=== PATIENT | female | born 1995 | race Caucasian/White ===

== ENCOUNTER 2018-05-24 15:03 | Emergency (ER) | payer OTHER ==
--- NOTE | 2018-05-24 15:10 | ER Report ---
History and Physical Time Seen By MD: 15:09 HPI/ROS CHIEF COMPLAINT: Nausea, abdominal pain and diarrhea HISTORY OF PRESENT ILLNESS: This is a 22-year-old female who presents to the emergency department for nausea, abdominal pain and diarrhea. Patient states that in January 2018 she began to have some regular episodes of diarrhea, multiple he did talk to her parents, thought to have gastroenteritis, ultimately had a colonoscopy and was diagnosed with ulcerative colitis, negative for Crohn's disease. She was started on Flagyl, prednisone and mesalamine, she states that however over the last 1-2 weeks the diarrhea, nausea, aches and chills have increased in intensity. Also has bilateral low back pain. The abdominal pain seems to have increased in intensity as well. No documented fevers at home, denies sore throat, no chest pain or shortness of breath. No rashes. No headaches or meningismus. Patient states she has had an unintentional weight loss, unsure how much. REVIEW OF SYSTEMS: Constitutional: As above. Eyes: No discharge. ENT: No sore throat. Cardiovascular: No chest pain, no palpitations. Respiratory: No cough, no shortness of breath. Gastrointestinal: As above. Genitourinary: No hematuria. Musculoskeletal: As above. Skin: No rashes. Neurological: No headache. Allergies: Coded Allergies: No Known Drug Allergies (Unverified , 05/24/18) Home Meds Active Scripts Ondansetron Hcl (ZOFRAN) 4 Mg Tablet, 4 MG PO Q4-6H PRN for prn, #20 TAB Prov:ABDIAS OLIVIAP-BC 05/24/18 Hydrocodone Bit/Acetaminophen (HYDROCODON-ACETAMINOPHEN 5-325) 1 Each Tablet, 1 EACH PO Q4-6H PRN for PAIN, #10 TAB Prov:ABDIAS OLIVIA JOCKEY AGENT-BC 05/24/18 Reported Medications Calcium Carbonate (CALCIUM) 500 Mg Tablet, 500 MG PO DAILY 05/24/18 Multivitamin With Minerals (MULTIPLE VITAMIN) 1 Each Tablet, 1 EACH PO DAILY, TAB 05/24/18 Bifidobacterium Infantis (ALIGN) 4 Mg Capsule, 4 MG PO QDAY, CAPSULE 05/24/18 Mesalamine (Mesalamine) 1.2 Gram Tablet.dr 05/24/18 Diphenoxylate Hcl/Atropine (DIPHENOXYLATE-ATROPINE TABLET) 1 Each Tablet 05/24/18 Metronidazole (METRONIDAZOLE) 500 Mg Tablet 05/24/18 Ferrous Sulfate (FERROUS SULFATE) 325 Mg Tablet 05/24/18 Prednisone (PREDNISONE) 20 Mg Tablet 05/24/18 Past Medical/Surgical History The patient has a past medical and surgical history of history of colitis, appendectomy. Reviewed Nurses Notes: Yes Constitutional Vital Sign - Last 24 Hours 05/24/18 05/24/18 05/24/18 05/24/18 15:07 15:08 15:09 15:13 Temp 98.6 Pulse 85 94 88 Resp 16 B/P (MAP) 127/71 (89) 127/71 Pulse Ox 92 92 91 O2 Delivery Room Air 05/24/18 05/24/18 05/24/18 05/24/18 15:18 15:23 15:28 15:30 Pulse 96 93 82 B/P (MAP) 113/66 (82) Pulse Ox 91 91 91 05/24/18 05/24/18 05/24/18 05/24/18 15:33 15:38 15:43 15:48 Pulse 93 87 85 83 Pulse Ox 93 91 91 88 O2 Delivery Room Air 05/24/18 05/24/18 05/24/18 05/24/18 16:00 16:13 16:18 16:23 Pulse 68 75 74 B/P (MAP) 106/69 (81) Pulse Ox 100 100 100 O2 Delivery Nasal Cannula O2 Flow Rate 2 05/24/18 05/24/18 05/24/18 05/24/18 16:28 16:30 16:55 17:00 Pulse 70 86 66 B/P (MAP) 100/54 (69) 107/61 (76) Pulse Ox 100 88 100 O2 Delivery Room Air 05/24/18 17:05 Pulse 71 Pulse Ox 100 Physical Exam General Appearance: The patient is alert, has no immediate need for airway protection and no signs of toxicity. Eyes: Pupils equal and round no pallor or injection. ENT, Mouth: Mucous membranes are moist. Respiratory: There are no retractions, lungs are clear to auscultation. Cardiovascular: Regular rate and rhythm, no murmurs, clicks or rubs. Gastrointestinal: Abdomen is soft, generalized abdominal tenderness with palpation, no masses, hyperactive bowel sounds to the right and left upper quadrants. No abdominal bruits. No masses. Neurological: Alert and oriented 4. Moving all extremities. Following all commands. No focal neuro deficits. Skin: Warm and dry, no rashes. Musculoskeletal: Neck is supple non tender. Extremities are nontender, nonswollen and have full range of motion. DIFFERENTIAL DIAGNOSIS: After history and physical exam differential diagnosis was considered for abdominal pain in a female including but not limited to ovarian cyst, pelvic inflammatory disease, ulcerative colitis, bowel obstruct ion, ovarian torsion, urinary tract infection, and appendicitis. Medical Decision Making Data Points Result Diagram: 05/24/18 1530 05/24/18 1530 Laboratory Hematology Test 05/24/18 15:30 05/24/18 15:50 05/24/18 16:09 05/24/18 16:57 Red Blood Count 4.19 M/uL (4.17-5.56) Mean Corpuscular Volume 79.3 fL (80.0-96.0) Mean Corpuscular Hemoglobin 24.6 pg (26.0-33.0) Mean Corpuscular Hemoglobin Concent 31.0 g/dL (32.0-36.0) Red Cell Distribution Width 25.6 % (11.5-14.5) Mean Platelet Volume 6.8 fL (7.2-11.1) Neutrophils (%) (Auto) 89.0 % (39.4-72.5) Lymphocytes (%) (Auto) 5.7 % (17.6-49.6) Monocytes (%) (Auto) 5.2 % (4.1-12.4) Eosinophils (%) (Auto) 0.0 % (0.4-6.7) Basophils (%) (Auto) 0.1 % (0.3-1.4) Nucleated RBC Relative Count (auto) 0.0 /100WBC Neutrophils # (Auto) 14.6 K/uL (2.0-7.4) Lymphocytes # (Auto) 0.9 K/uL (1.3-3.6) Monocytes # (Auto) 0.9 K/uL (0.3-1.0) Eosinophils # (Auto) 0.0 K/uL (0.0-0.5) Basophils # (Auto) 0.0 K/uL (0.0-0.1) Nucleated RBC Absolute Count (auto) 0.00 K/uL Peripheral Blood Smear Yes Y/N Stool Leukocytes, Qualitative Positive Sodium Level 134 mmol/L (137-145) Potassium Level 4.2 mmol/L (3.5-5.0) Chloride Level 99 mmol/L (98-107) Carbon Dioxide Level 28 mmol/L (22-31) Blood Urea Nitrogen 12 mg/dl (7-18) Creatinine 1.40 mg/dl (0.52-1.04) Glomerular Filtration Rate Calc 47.0 Random Glucose 128 mg/dl (75-110) Calcium Level 8.5 mg/dl (8.4-10.2) Total Bilirubin < 0.1 mg/dl (0.2-1.3) Aspartate Amino Transf (AST/SGOT) 12 U/L (0-35) Alanine Aminotransferase (ALT/SGPT) 22 U/L (0-56) Alkaline Phosphatase 69 U/L (0-126) Total Protein 6.4 g/dl (6.3-8.2) Albumin 3.4 g/dl (3.5-5.0) Lipase 31 U/L (23-300) Human Chorionic Gonadotropin, Qual Negative (NEGATIVE) Helicobacter pylori IgG Antibody Negative (NEGATIVE) Influenza Virus Type A (PCR) Negative (NEGATIVE) Influenza Virus Type B (PCR) Negative (NEGATIVE) Urine Color Yellow Urine Clarity Slightly-cloudy Urine pH 6.0 pH (4.8-9.5) Urine Specific [place] 1.023 Urine Protein Negative mg/dL (NEGATIVE) Urine Glucose (UA) Negative mg/dL (NEGATIVE) Urine Ketones Negative mg/dL (NEGATIVE) Urine Blood Negative (NEGATIVE) Urine Nitrite Negative (NEGATIVE) Urine Bilirubin Negative (NEGATIVE) Urine Urobilinogen Negative mg/dL (0.2-1.9) Urine Leukocyte Esterase Trace (NEGATIVE) Urine RBC <1 /HPF (0-2/HPF) Urine WBC 2 /HPF (0-5/HPF) Urine Squamous Epithelial Cells Many /LPF (</=FEW) Urine Bacteria Few /HPF (NONE-FEW) Urine Mucus None /HPF (NONE-FEW) Stool Occult Blood (IFOB) Positive (NEGATIVE) Chemistry Test 05/24/18 15:30 05/24/18 15:50 05/24/18 16:09 05/24/18 16:57 White Blood Count 16.4 k/uL (4.5-11.0) Red Blood Count 4.19 M/uL (4.17-5.56) Hemoglobin 10.3 g/dL (12.0-16.0) Hematocrit 33.3 % (34.0-47.0) Mean Corpuscular Volume 79.3 fL (80.0-96.0) Mean Corpuscular Hemoglobin 24.6 pg (26.0-33.0) Mean Corpuscular Hemoglobin Concent 31.0 g/dL (32.0-36.0) Red Cell Distribution Width 25.6 % (11.5-14.5) Platelet Count 460 K/uL (150-450) Mean Platelet Volume 6.8 fL (7.2-11.1) Neutrophils (%) (Auto) 89.0 % (39.4-72.5) Lymphocytes (%) (Auto) 5.7 % (17.6-49.6) Monocytes (%) (Auto) 5.2 % (4.1-12.4) Eosinophils (%) (Auto) 0.0 % (0.4-6.7) Basophils (%) (Auto) 0.1 % (0.3-1.4) Nucleated RBC Relative Count (auto) 0.0 /100WBC Neutrophils # (Auto) 14.6 K/uL (2.0-7.4) Lymphocytes # (Auto) 0.9 K/uL (1.3-3.6) Monocytes # (Auto) 0.9 K/uL (0.3-1.0) Eosinophils # (Auto) 0.0 K/uL (0.0-0.5) Basophils # (Auto) 0.0 K/uL (0.0-0.1) Nucleated RBC Absolute Count (auto) 0.00 K/uL Peripheral Blood Smear Yes Y/N Stool Leukocytes, Qualitative Positive Glomerular Filtration Rate Calc 47.0 Calcium Level 8.5 mg/dl (8.4-10.2) Total Bilirubin < 0.1 mg/dl (0.2-1.3) Aspartate Amino Transf (AST/SGOT) 12 U/L (0-35) Alanine Aminotransferase (ALT/SGPT) 22 U/L (0-56) Alkaline Phosphatase 69 U/L (0-126) Total Protein 6.4 g/dl (6.3-8.2) Albumin 3.4 g/dl (3.5-5.0) Lipase 31 U/L (23-300) Human Chorionic Gonadotropin, Qual Negative (NEGATIVE) Helicobacter pylori IgG Antibody Negative (NEGATIVE) Influenza Virus Type A (PCR) Negative (NEGATIVE) Influenza Virus Type B (PCR) Negative (NEGATIVE) Urine Color Yellow Urine Clarity Slightly-cloudy Urine pH 6.0 pH (4.8-9.5) Urine Specific [place] 1.023 Urine Protein Negative mg/dL (NEGATIVE) Urine Glucose (UA) Negative mg/dL (NEGATIVE) Urine Ketones Negative mg/dL (NEGATIVE) Urine Blood Negative (NEGATIVE) Urine Nitrite Negative (NEGATIVE) Urine Bilirubin Negative (NEGATIVE) Urine Urobilinogen Negative mg/dL (0.2-1.9) Urine Leukocyte Esterase Trace (NEGATIVE) Urine RBC <1 /HPF (0-2/HPF) Urine WBC 2 /HPF (0-5/HPF) Urine Squamous Epithelial Cells Many /LPF (</=FEW) Urine Bacteria Few /HPF (NONE-FEW) Urine Mucus None /HPF (NONE-FEW) Stool Occult Blood (IFOB) Positive (NEGATIVE) Urinalysis Test 05/24/18 16:09 Urine Color Yellow Urine Clarity Slightly-cloudy Urine pH 6.0 pH (4.8-9.5) Urine Specific [place] 1.023 Urine Protein Negative mg/dL (NEGATIVE) Urine Glucose (UA) Negative mg/dL (NEGATIVE) Urine Ketones Negative mg/dL (NEGATIVE) Urine Blood Negative (NEGATIVE) Urine Nitrite Negative (NEGATIVE) Urine Bilirubin Negative (NEGATIVE) Urine Urobilinogen Negative mg/dL (0.2-1.9) Urine Leukocyte Esterase Trace (NEGATIVE) Urine RBC <1 /HPF (0-2/HPF) Urine WBC 2 /HPF (0-5/HPF) Urine Squamous Epithelial Cells Many /LPF (</=FEW) Urine Bacteria Few /HPF (NONE-FEW) Urine Mucus None /HPF (NONE-FEW) EKG/Imaging Imaging ocation: [facility] Patient: Kaitlynn Fabian : 1995 Visit/Account:[id number] Date of Sevice: 05/24/2018 CT ABDOMEN PELVIS W/ CON HISTORY: abd pain, diarrhea, UC worse TECHNIQUE: Following administration of IV contrast contiguous axial images acquired through the abdomen/pelvis. Coronal and sagittal reformatting also performed.Dose Lowering Technique One of the following dose optimization techniques was utilized in the performance of this exam: Automated exposure control; adjustment of the mA and/or kV according to the patient's size; or use of an iterative reconstruction technique. Specific details can be referenced in the facility's radiology CT exam operational policy. CONTRAST: 75 mL Isovue-370 COMPARISON: None. FINDINGS: Visualized lung bases: Negative. Hepatobiliary: The gallbladder is contracted which may be related to a recent meal as the stomach is full particulate material Spleen: Accessory splenule Adrenals: Negative. Pancreas: Negative. Kidneys ureters or bladder: Negative. Genitalia: Negative. GI: There is thickening and enhancement of the wall of the sigmoid colon and rectum which may be related to patient's reported ulcerative colitis. There also appears to be mild thickening of the cecum. Also just above the cecum in the ascending colon there is a large filling defect measuring 6.4 x 5.9 x 5.4 cm this may represent a conglomerate of stool however possibility of a mass lesion is not ruled out. There are surgical clips adjacent to the cecum from a prior appendectomy. Vessels/spaces/nodes: There are numerous mesenteric lymph nodes in the right- sided the abdomen extending into the right lower quadrant. A sales representative raw fibers lymph node measures 1.3 x 0.9 cm. Small shotty retroperitoneal lymph nodes present . There is a trace amount of free pelvic fluid Bones/soft tissues: There is a small umbilical hernia containing fat Additional findings: None pertinent. IMPRESSION: There is thickening enhancement of the wall the sigmoid colon and rectum which may be related to the patient's reported ulcerative colitis. There also appears to be mild thickening of the cecum Just above the cecum in the ascending colon there is a large filling defect as described above which may represent a conglomerate of stool however the possibility of a mass lesion is not ruled out. Numerous mesenteric lymph nodes right-sided the abdomen extending into the right lower quadrant Trace amount of free pelvic fluid. Gallbladder appears contracted which may be related to a recent meal as the stomach is full of particulate material Results were called to ABDIAS OLIVIA at 05/24/2018 4:40 PM. Report Dictated By: Angi Echols MD at 05/24/2018 4:25 PM Report E-Signed By: Angi Echols MD at 05/24/2018 4:40 PM WSN:[email or web address] ED Course/Re-evaluation Clinical Indication for ER IV: Hydration, IV Access ED Course The patient was admitted to room. A history and physical obtained. Differential diagnoses were considered. An IV was tried. 1 L normal saline bolus was given. 4 mg IV Zofran, 50 mg IV fentanyl. Follow-up with 4 mg IV morphine. CBC, CMP were obtained. White count 16.4, H&H 10.3 and 33.3, platelets were 60. Creatinine 1.40.CT of the abdomen pelvis showing thickening of the sigmoid colon and rectum consistent with the patient's ulcerative colitis, with some increased thickening of the cecum, they did note that there was a filling defect in the ascending colon that could be a conglomerate of stool over the were concerned about a mass or lesion however the patient had a colonoscopy in April no mass lesion was noted. Numerous mesenteric lymph nodes, otherwise unremarkable. I did review the studies with the patient and her mother. I also reviewed the case with Dr. Frazier, he did not feel that admission would be warranted at this time as the patient is on maximum steroid therapy and treatment for ulcerative colitis. I did review this with the mother and the patient, they were agreeable, they also have a follow-up appointment with GI in [place] tomorrow I did recommend driving up tonight given the weather is scheduled to change. I suspect that the elevation in white count with the left shift is secondary to the acute ulcerati ve colitis as well as steroids. The patient's creatinine is 1.4, likely dehydration The patient did feel better after a liter fluid and pain medications. I did send the patient home with a prescription for hydrocodone as well as Zofran. They will keep your follow-up appointment tomorrow, return to [facility] ER for any other concerns. Decision to Disposition Date: May 24, 2018 Decision to Disposition Time: 17:22 Depart Departure Latest Vital Signs Vital Signs Date Time Temp Pulse Resp B/P (MAP) Pulse Ox O2 Delivery O2 Flow Rate FiO2 05/24/18 17:05 71 100 05/24/18 17:00 107/61 (76) 05/24/18 16:55 Room Air 05/24/18 16:13 2 05/24/18 15:09 98.6 16 Impression: Primary Impression: Ulcerative colitis Condition: Improved Disposition: HOME OR SELF-CARE New Scripts Ondansetron Hcl (ZOFRAN) 4 Mg Tablet 4 MG PO Q4-6H PRN for prn, #20 TAB Prov: ABDIAS OLIVIA [facility] 05/24/18 Hydrocodone Bit/Acetaminophen (HYDROCODON-ACETAMINOPHEN 5-325) 1 Each Tablet 1 EACH PO Q4-6H PRN for PAIN, #10 TAB Prov: ABDIAS OLIVIAPChristo 05/24/18 Patient Instructions: Ulcerative Colitis (ED) Additional Instructions: Please consider driving to [place] [employer] as the weather in this area changes so quickly, I would hate for you to miss your appointment with GI tomorrow. Try a bland or clear liquid diet. Use the Hydrocodone for severe pain. Use the Zofran for nausea or vomiting. Continue taking your current medications. Return to the ED for any other concerns or worsening symptoms. Problem Qualifiers Primary Impression: Ulcerative colitis Ulcerative colitis location: ulcerative pancolitis Digestive disease complication type: unspecified complication Qualified Codes: K51.019 - Ulcerative (chronic) pancolitis with unspecified complications ABDIAS OLIVIA [facility] May 24, 2018 15:09
[2018-05-24] MEDS ORDERED: NS(*) 0.9% 1000 ML BAG 1,000 ML IV ONE (15:26)
[2018-05-24] MEDS ORDERED: fentaNYL CITR 100 MCG/2 ML AMP IVP ONE (15:30)
[2018-05-24] MEDS ORDERED: ONDANSETRON 4 MG/2 ML VIAL IVP ONE (15:30)
[2018-05-24] MEDS ORDERED: PANTOPRAZOLE SOD 40 MG IV VIAL IVP ONE (15:30)
[2018-05-24] MEDS ORDERED: IOPAMIDOL 61% 75 ML INFUS BTL 75 ML ONE (15:41)
[2018-05-24 15:43] LABS: PLATELET COUNT, AUTOMATED 460 K/uL (150-450)
[2018-05-24] MEDS ORDERED: BIFI4CAP2 PO (16:09)
[2018-05-24] MEDS ORDERED: CALC500T6 PO (16:09)
[2018-05-24] MEDS ORDERED: PRED20TA6 (16:09)
[2018-05-24] MEDS ORDERED: FERR-53 (16:09)
[2018-05-24] MEDS ORDERED: MULT-1335 PO (16:09)
[2018-05-24] MEDS ORDERED: METR500T15 (16:09)
[2018-05-24] MEDS ORDERED: MESA1.2T3 (16:09)
[2018-05-24] MEDS ORDERED: DIPH-543 (16:09)
[2018-05-24] MEDS ORDERED: MORPHINE 4 MG/ML SDV IVP ONE (16:20)
--- NOTE | 2018-05-24 16:45 | RADIOLOGY IMAGING REPORT ---
FACILITY: [facility] - [place] PATIENT NAME: Kaitlynn Fabian : 1995 MR: [id number] V: [id number] EXAM DATE: ORDERING PHYSICIAN: ABDIAS OLIVIA TECHNOLOGIST: Location: [facility] - [place] Patient: Kaitlynn Fabian : 1995 Visit/Account:[id number] Date of Sevice: 05/24/2018 CT ABDOMEN PELVIS W/ CON HISTORY: abd pain, diarrhea, UC worse TECHNIQUE: Following administration of IV contrast contiguous axial images acquired through the abdom en/pelvis. Coronal and sagittal reformatting also performed.Dose Lowering Technique One of the following dose optimization techniques was utilized in the performance of this exam: Autom ated exposure control; adjustment of the mA and/or kV according to the patient's size; or use of an i terative reconstruction technique. Specific details can be referenced in the facility's radiology C T exam operational policy. CONTRAST: 75 mL Isovue-370 COMPARISON: None. FINDINGS: Visualized lung bases: Negative. Hepatobiliary: The gallbladder is contracted which may be related to a recent meal as the stomach is full particulate material Spleen: Accessory splenule Adrenals: Negative. Pancreas: Negative. Kidneys ureters or bladder: Negative. Genitalia: Negative. GI: There is thickening and enhancement of the wall of the sigmoid colon and rectum which may be rel ated to patient's reported ulcerative colitis. There also appears to be mild thickening of the cecum . Also just above the cecum in the ascending colon there is a large filling defect measuring 6.4 x 5 .9 x 5.4 cm this may represent a conglomerate of stool however possibility of a mass lesion is not ru led out. There are surgical clips adjacent to the cecum from a prior appendectomy. Vessels/spaces/nodes: There are numerous mesenteric lymph nodes in the right-sided the abdomen exten ding into the right lower quadrant. A computer help desk representative lymph node measures 1.3 x 0.9 cm. Small shotty retroperitoneal lymph nodes present . There is a trace amount of free pelvic fluid Bones/soft tissues: There is a small umbilical hernia containing fat Additional findings: None pertinent. IMPRESSION: There is thickening enhancement of the wall the sigmoid colon and rectum which may be related to the patient's reported ulcerative colitis. There also appears to be mild thickening of the cecum Just above the cecum in the ascending colon there is a large filling defect as described above which may represent a conglomerate of stool however the possibility of a mass lesion is not ruled out. Num erous mesenteric lymph nodes right-sided the abdomen extending into the right lower quadrant Trace amount of free pelvic fluid. Gallbladder appears contracted which may be related to a recent meal as the stomach is full of partic ulate material Results were called to ABDIAS OLIVIA at 05/24/2018 4:40 PM. Report Dictated By: Angi Echols MD at 05/24/2018 4:25 PM Report E-Signed By: Angi Echols MD at 05/24/2018 4:40 PM WSN:[email or web address]
[2018-05-24 17:00] VITALS: BP 107/61
[2018-05-24] MEDS ORDERED: HYDR-385 PO (17:18)
[2018-05-24] MEDS ORDERED: ONDA4TAB97 PO (17:18)
== END 2018-05-24 17:34 | disposition home or self-care (01) ==
LOC: ER 15:37
DX: K51.019 Ulcerative (chronic) pancolitis with unspecified complications (principal)
CPT/HCPCS: 74177; 81001; 82274; 83630; 83690; 84703; 85025; 86677; 87045; 87177; 87493; 87502; 96361; 96374; 96375; 99284; C9113; J2270; J2405; J3010; J7030; Q9967; 82040; 82247; 82310; 82374; 82435; 82565; 82947; 84075; 84132; 84155; 84295; 84450; 84460; 84520

== ENCOUNTER → 2018-06-27 | Outpatient (CLI) | payer OTHER ==
[~2018-06-27] MED LIST: BIFI4CAP2 PO; CALC500T6 PO; DIPH-543; FERR-53; HYDR-385 PO; MESA1.2T3; METR500T15; MULT-1335 PO; ONDA4TAB97 PO; PRED20TA6
--- NOTE | 2018-06-27 14:16 | RADIOLOGY IMAGING REPORT ---
[place] [facility] [place] NAME: Kaitlynn Fabian : 1995 MR: [id number] V: [id number] EXAM DATE: ORDERING PHYSICIAN: DEBBIE REYSE TECHNOLOGIST: [place] [facility] [place] Patient: Kaitlynn Fabian : 1995 Visit/Account:[id number] Date of Sevice: 06/27/2018 US VENOUS LOWER EXT RT HISTORY: Calf pain since Tuesday COMPARISON: None. FINDINGS: Duplex sonographic images of the segmental compressibility and evaluation of respiratory phasicity re veals no evidence of DVT. No mass or fluid collection. IMPRESSION: Unremarkable right lower extremity DVT ultrasound Report Dictated By: Beka Ramos MD at 06/27/2018 2:10 PM Report E-Signed By: Beka Ramos MD at 06/27/2018 2:11 PM WSN:[id number]
== END ==
LOC: CT 12:40
PROVIDERS: ATTEND Nurse Practitioner Family
DX: M79.604 Pain in right leg (principal)

== ENCOUNTER → 2018-06-27 | Outpatient (CLI) | payer OTHER ==
[~2018-06-27] MED LIST changes: +IOPAMIDOL 76% 150 ML INFUS BTL 150 ML ONE
--- NOTE | 2018-06-27 17:10 | RADIOLOGY IMAGING REPORT ---
FACILITY: PATIENT NAME: Kaitlynn Fabian : 1995 MR: [id number] V: [id number] EXAM DATE: ORDERING PHYSICIAN: DEBBIE REYES TECHNOLOGIST: Location: [facility] Patient: Kaitlynn Fabian : 1995 Visit/Account:[id number] Date of Sevice: 06/27/2018 CT abdomen and pelvis with and without contrast. Indication: Abdominal pain. History of ulcerative colitis. Comparison: May 24, 2018. Technique: Axial CT images were obtained through the abdomen and pelvis during injection of nonioni c iodinated intravenous contrast. Reformatted coronal and sagittal images were also obtained. Pre con trast images were also obtained. Contrast: 75 ml of Isovue-370 IV contrast. One of the following dose optimization techniques was utilized in the performance of this exam: Autom ated exposure control; adjustment of the mA and/or kV according to the patient's size; or use of an i terative reconstruction technique. Specific details can be referenced in the facility's radiology C T exam operational policy. Findings: Lower lung stoll: Limited views lower lung field are unremarkable. Liver: No focal parenchymal abnormality of the liver. Biliary: The gallbladder is contracted. No biliary dilatation. Pancreas: Normal appearance. Spleen: Normal appearance. Adrenal glands: Unremarkable. Kidneys / retroperitoneum: No evidence of nephrolithiasis or hydronephrosis Bowel / peritoneum / mesenteries: Since the previous exam, patient has developed wall and mucosal thi ckening involving the ascending colon, the transverse colon and the splenic flexure of the colon cons istent with an acute colitis. This would be consistent with a history of ulcerative colitis. There is a large colonic mass identified within the ascending colon. This causes focal luminal narrowing. The re is felt to be central necrosis identified within this mass. Since the prior exam, the central area of necrosis is much better defined. In 3 planes, this measures at least 6.0 x 4.5 x 7.2 cm in size. Given the history of ulcerative colitis, concern is for colonic malignancy and surgical consultation is necessary. There has been prior appendectomy. No evidence for colonic or small bowel obstruction. No free air. There is a small amount of free pelvic fluid within the dependent pelvis. Lymph node assessment: A few scattered nodes are seen within the right ileocolonic mesentery. Largest node on image 85 measures 7 mm in short axis and is not enlarged by criteria. Pelvic structures: Appear unremarkable. Vessels: No significant atherosclerotic calcifications seen throughout a nonaneurysmal abdominal aort a and branches. Musculoskeletal / Body wall: No acute or aggressive osseous abnormality. IMPRESSION: 1. CT findings consistent with recurrent colitis involving the ascending colon, transverse colon and the splenic flexure of the colon. No evidence of free air or abscess. 2. CT findings consistent with a large mass involving the ascending colon with central necrosis. See measurements above. A few scattered nodes are seen in the surrounding mesenteryy. 3. Small volume of free pelvic fluid. Results were discussed with DEBBIE REYES at 06/27/2018 5:06 PM. Report Dictated By: Miles Bravo at 06/27/2018 4:38 PM Report E-Signed By: Miles Bravo at 06/27/2018 5:06 PM WSN:[id number]
== END ==
LOC: CT 15:41
PROVIDERS: ATTEND Nurse Practitioner Family
DX: K52.89 Other specified noninfective gastroenteritis and colitis (principal); K63.89 Other specified diseases of intestine
CPT/HCPCS: 74178; Q9967

== ENCOUNTER → 2018-06-27 | Outpatient (REF) | payer OTHER ==
[~2018-06-27] MED LIST changes: -IOPAMIDOL 76% 150 ML INFUS BTL 150 ML ONE
[2018-06-27 13:00] LABS: PLATELET COUNT, AUTOMATED 369 K/uL (150-450)
== END ==
PROVIDERS: ATTEND Nurse Practitioner Family
DX: M79.609 Pain in unspecified limb (principal)
CPT/HCPCS: 36415; 82040; 82247; 82310; 82374; 82435; 82565; 82947; 84075; 84132; 84155; 84295; 84450; 84460; 84520; 85025; 85379

== ENCOUNTER 2018-06-28 03:08 | Emergency (ER) | payer OTHER ==
--- NOTE | 2018-06-28 03:14 | ER Report ---
History and Physical Time Seen By MD: 03:14 (EVELIO NOLASCO DO) HPI/ROS CHIEF COMPLAINT: Right lower leg pain HISTORY OF PRESENT ILLNESS: 23-year-old female with an extensive past medical history of ulcerative colitis. She is on Humira. She also is on numerous medications for maintenance of her ulcerative colitis. 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 She has plans for colonoscopy and biopsy. Patient's here visiting from [place]. She participate in a rodeo on Tuesday. She was thrown from her horse because she is feeling weak and off balance. She did not sustain any injury. She was able to get up and ambulate without pain or discomfort. She developed right leg pain. Several days later very mild at 1st in the right calf muscle progressively worse over the last 3 days to the point where she is unable to walk or ambulate. She was seen yesterday in urgent care and had an ultrasound of her right lower extremity performed which was negative for evidence of DVT. She's been taking her hydrocodone which is prescribed by her GI doctor with minimal relief. Tonight she has 10 out of 10 pain. She is unable to get comfortable. She is on prednisone 30 mg per day for control and maintenance of her ulcerative colitis. (EVELIO NOLASCO DO) Allergies: Coded Allergies: No Known Drug Allergies (Unverified , 05/24/18) Home Meds Active Scripts Ondansetron Hcl (ZOFRAN) 4 Mg Tablet, 4 MG PO Q4-6H PRN for prn, #20 TAB Prov:ABDIAS OLIVIAP-BC 05/24/18 Hydrocodone Bit/Acetaminophen (HYDROCODON-ACETAMINOPHEN 5-325) 1 Each Tablet, 1 EACH PO Q4-6H PRN for PAIN, #10 TAB Prov:ABDIAS OLIVIA BUSINESS OFFICE ASSISTANT-BC 05/24/18 Reported Medications Calcium Carbonate (CALCIUM) 500 Mg Tablet, 500 MG PO DAILY 05/24/18 Multivitamin With Minerals (MULTIPLE VITAMIN) 1 Each Tablet, 1 EACH PO DAILY, TAB 05/24/18 Bifidobacterium Infantis (ALIGN) 4 Mg Capsule, 4 MG PO QDAY, CAPSULE 05/24/18 Mesalamine (Mesalamine) 1.2 Gram Tablet. 05/24/18 Diphenoxylate Hcl/Atropine (DIPHENOXYLATE-ATROPINE TABLET) 1 Each Tablet 05/24/18 Metronidazole (METRONIDAZOLE) 500 Mg Tablet 05/24/18 Ferrous Sulfate (FERROUS SULFATE) 325 Mg Tablet 05/24/18 Prednisone (PREDNISONE) 20 Mg Tablet 05/24/18 Past Medical/Surgical History Ulcerative colitis, abdominal mass (EVELIO NOLASCO DO) Reviewed Nurses Notes: Yes Old Medical Records Reviewed: Yes (EVELIO NOLASCO DO) Constitutional Vital Sign - Last 24 Hours 06/28/18 06/28/18 06/28/18 06/28/18 03:13 03:14 03:30 03:38 Temp 98.8 Pulse 111 106 Resp 18 B/P (MAP) 144/81 (102) 144/81 130/78 (95) Pulse Ox 99 99 O2 Delivery Room Air 06/28/18 06/28/18 06/28/18 06/28/18 04:00 04:30 05:00 05:30 B/P (MAP) 126/74 (91) 115/66 (82) 123/63 (83) 117/72 (87) 06/28/18 06/28/18 06/28/18 06/28/18 06:00 06:30 06:35 06:55 Pulse 93 88 B/P (MAP) 127/71 (89) 138/71 (93) 06/28/18 06/28/18 06/28/18 06/28/18 07:15 07:35 07:55 08:15 Pulse 99 99 110 118 Pulse Ox 97 06/28/18 06/28/18 06/28/18 06/28/18 08:20 08:36 08:40 09:00 Pulse 136 119 106 Pulse Ox 95 97 100 O2 Flow Rate 2.0 06/28/18 09:20 Pulse 102 (MIKAYLA LEONARD MD) Physical Exam General appearance: Moderate distress, slightly pale appearing, vital signs stable, afebrile Respiratory: Chest is non tender, lungs are clear to auscultation. Cardiac: Regular rate and rhythm Extremities: Examination of the right lower extremity reveals a neurovascularly intact right foot. The foot is slightly cool appearing and cold to the touch, but there are intact pulses both dorsalis pedis and posterior tibial. Patient has significant pain on compression of the calf muscle, dorsiflexion, there is edema and fullness to the Achilles bursa area. DIFFERENTIAL DIAGNOSIS: After history and physical exam differential diagnosis was considered for leg pain, bursitis, Achilles tendinitis, muscle strain, hematoma, DVT, arthritis (EVELIO NOLASCO DO) Medical Decision Making Data Points Result Diagram: 06/28/18 0705 06/28/18 0705 Laboratory Hematology Test 06/28/18 07:05 06/28/18 08:07 06/28/18 08:16 Red Blood Count 3.45 M/uL (4.17-5.56) Mean Corpuscular Volume 82.7 fL (80.0-96.0) Mean Corpuscular Hemoglobin 25.9 pg (26.0-33.0) Mean Corpuscular Hemoglobin Concent 31.3 g/dL (32.0-36.0) Red Cell Distribution Width 20.6 % (11.5-14.5) Mean Platelet Volume 6.7 fL (7.2-11.1) Neutrophils (%) (Auto) 82.4 % (39.4-72.5) Lymphocytes (%) (Auto) 13.0 % (17.6-49.6) Monocytes (%) (Auto) 4.3 % (4.1-12.4) Eosinophils (%) (Auto) 0.0 % (0.4-6.7) Basophils (%) (Auto) 0.3 % (0.3-1.4) Nucleated RBC Relative Count (auto) 0.0 /100WBC Neutrophils # (Auto) 15.3 K/uL (2.0-7.4) Lymphocytes # (Auto) 2.4 K/uL (1.3-3.6) Monocytes # (Auto) 0.8 K/uL (0.3-1.0) Eosinophils # (Auto) 0.0 K/uL (0.0-0.5) Basophils # (Auto) 0.1 K/uL (0.0-0.1) Nucleated RBC Absolute Count (auto) 0.00 K/uL Peripheral Blood Smear Yes Y/N Prothrombin Time 13.7 seconds (12.0-14.4) Prothromb Time International Ratio 1.04 Activated Partial Thromboplast Time 30 seconds (23-35) Sodium Level 134 mmol/L (137-145) Potassium Level 3.4 mmol/L (3.5-5.0) Chloride Level 94 mmol/L (98-107) Carbon Dioxide Level 28 mmol/L (22-31) Blood Urea Nitrogen 15 mg/dl (7-18) Creatinine 0.80 mg/dl (0.52-1.04) Glomerular Filtration Rate Calc > 60.0 Random Glucose 112 mg/dl (75-110) Calcium Level 9.1 mg/dl (8.4-10.2) Total Bilirubin 0.4 mg/dl (0.2-1.3) Aspartate Amino Transf (AST/SGOT) 19 U/L (0-35) Alanine Aminotransferase (ALT/SGPT) 21 U/L (0-56) Alkaline Phosphatase 88 U/L (0-126) C-Reactive Protein 22.5 mg/dl (<1.0) Total Protein 7.4 g/dl (6.3-8.2) Albumin 4.2 g/dl (3.5-5.0) Urine Color Yellow Urine Clarity Slightly-cloudy Urine pH 6.0 pH (4.8-9.5) Urine Specific [place] 1.039 Urine Protein 30 mg/dL (NEGATIVE) Urine Glucose (UA) Negative mg/dL (NEGATIVE) Urine Ketones Negative mg/dL (NEGATIVE) Urine Blood Small (NEGATIVE) Urine Nitrite Negative (NEGATIVE) Urine Bilirubin Negative (NEGATIVE) Urine Urobilinogen Negative mg/dL (0.2-1.9) Urine Leukocyte Esterase Negative (NEGATIVE) Urine RBC 1 /HPF (0-2/HPF) Urine WBC 5 /HPF (0-5/HPF) Urine Squamous Epithelial Cells Many /LPF (</=FEW) Urine Transitional Epithelial Cells Few /LPF (NONE-FEW) Urine Bacteria Negative /HPF (NONE-FEW) Urine Mucus Few /HPF (NONE-FEW) Lactate 2.8 mmol/L (0.7-2.1) Chemistry Test 06/28/18 07:05 06/28/18 08:07 06/28/18 08:16 White Blood Count 18.6 k/uL (4.5-11.0) Red Blood Count 3.45 M/uL (4.17-5.56) Hemoglobin 8.9 g/dL (12.0-16.0) Hematocrit 28.5 % (34.0-47.0) Mean Corpuscular Volume 82.7 fL (80.0-96.0) Mean Corpuscular Hemoglobin 25.9 pg (26.0-33.0) Mean Corpuscular Hemoglobin Concent 31.3 g/dL (32.0-36.0) Red Cell Distribution Width 20.6 % (11.5-14.5) Platelet Count 385 K/uL (150-450) Mean Platelet Volume 6.7 fL (7.2-11.1) Neutrophils (%) (Auto) 82.4 % (39.4-72.5) Lymphocytes (%) (Auto) 13.0 % (17.6-49.6) Monocytes (%) (Auto) 4.3 % (4.1-12.4) Eosinophils (%) (Auto) 0.0 % (0.4-6.7) Basophils (%) (Auto) 0.3 % (0.3-1.4) Nucleated RBC Relative Count (auto) 0.0 /100WBC Neutrophils # (Auto) 15.3 K/uL (2.0-7.4) Lymphocytes # (Auto) 2.4 K/uL (1.3-3.6) Monocytes # (Auto) 0.8 K/uL (0.3-1.0) Eosinophils # (Auto) 0.0 K/uL (0.0-0.5) Basophils # (Auto) 0.1 K/uL (0.0-0.1) Nucleated RBC Absolute Count (auto) 0.00 K/uL Peripheral Blood Smear Yes Y/N Prothrombin Time 13.7 seconds (12.0-14.4) Prothromb Time International Ratio 1.04 Activated Partial Thromboplast Time 30 seconds (23-35) Glomerular Filtration Rate Calc > 60.0 Calcium Level 9.1 mg/dl (8.4-10.2) Total Bilirubin 0.4 mg/dl (0.2-1.3) Aspartate Amino Transf (AST/SGOT) 19 U/L (0-35) Alanine Aminotransferase (ALT/SGPT) 21 U/L (0-56) Alkaline Phosphatase 88 U/L (0-126) C-Reactive Protein 22.5 mg/dl (<1.0) Total Protein 7.4 g/dl (6.3-8.2) Albumin 4.2 g/dl (3.5-5.0) Urine Color Yellow Urine Clarity Slightly-cloudy Urine pH 6.0 pH (4.8-9.5) Urine Specific [place] 1.039 Urine Protein 30 mg/dL (NEGATIVE) Urine Glucose (UA) Negative mg/dL (NEGATIVE) Urine Ketones Negative mg/dL (NEGATIVE) Urine Blood Small (NEGATIVE) Urine Nitrite Negative (NEGATIVE) Urine Bilirubin Negative (NEGATIVE) Urine Urobilinogen Negative mg/dL (0.2-1.9) Urine Leukocyte Esterase Negative (NEGATIVE) Urine RBC 1 /HPF (0-2/HPF) Urine WBC 5 /HPF (0-5/HPF) Urine Squamous Epithelial Cells Many /LPF (</=FEW) Urine Transitional Epithelial Cells Few /LPF (NONE-FEW) Urine Bacteria Negative /HPF (NONE-FEW) Urine Mucus Few /HPF (NONE-FEW) Lactate 2.8 mmol/L (0.7-2.1) Coagulation Test 06/28/18 07:05 Prothrombin Time 13.7 seconds Prothromb Time International Ratio 1.04 Activated Partial Thromboplast Time 30 seconds Urinalysis Test 06/28/18 08:07 Urine Color Yellow Urine Clarity Slightly-cloudy Urine pH 6.0 pH (4.8-9.5) Urine Specific [place] 1.039 Urine Protein 30 mg/dL (NEGATIVE) Urine Glucose (UA) Negative mg/dL (NEGATIVE) Urine Ketones Negative mg/dL (NEGATIVE) Urine Blood Small (NEGATIVE) Urine Nitrite Negative (NEGATIVE) Urine Bilirubin Negative (NEGATIVE) Urine Urobilinogen Negative mg/dL (0.2-1.9) Urine Leukocyte Esterase Negative (NEGATIVE) Urine RBC 1 /HPF (0-2/HPF) Urine WBC 5 /HPF (0-5/HPF) Urine Squamous Epithelial Cells Many /LPF (</=FEW) Urine Transitional Epithelial Cells Few /LPF (NONE-FEW) Urine Bacteria Negative /HPF (NONE-FEW) Urine Mucus Few /HPF (NONE-FEW) (MIKAYLA LEONARD MD) Microbiology Microbiology Date/Time Source Procedure Growth Status 06/28/18 08:33 Blood Blood Culture - Preliminary NO GROWTH SO FAR, SET LATE. REINCUBATED Resulted 06/28/18 08:16 Blood Blood Culture - Preliminary NO GROWTH SO FAR, SET LATE. REINCUBATED Resulted (MIKAYLA LEONARD MD) EKG/Imaging Imaging Results: CT scan of the abdomen and pelvis with IV contrast was obtained. The results of the study are CT abdomen and pelvis with and without contrast. Indication: Abdominal pain. History of ulcerative colitis. Comparison: May 24, 2018. Technique: Axial CT images were obtained through the abdomen and pelvis during injection of nonionic iodinated intravenous contrast. Reformatted coronal and sagittal images were also obtained. Pre contrast images were also obtained. Contrast: 75 ml of Isovue-370 IV contrast. One of the following dose optimization techniques was utilized in the performance of this exam: Automated exposure control; adjustment of the mA and/or kV according to the patient's size; or use of an iterative reconstruction technique. Specific details can be referenced in the facility's radiology CT exam operational policy. Findings: Lower lung stoll: Limited views lower lung field are unremarkable. Liver: No focal parenchymal abnormality of the liver. Biliary: The gallbladder is contracted. No biliary dilatation. Pancreas: Normal appearance. Spleen: Normal appearance. Adrenal glands: Unremarkable. Kidneys / retroperitoneum: No evidence of nephrolithiasis or hydronephrosis Bowel / peritoneum / mesenteries: Since the previous exam, patient has developed wall and mucosal thickening involving the ascending colon, the transverse colon and the splenic flexure of the colon consistent with an acute colitis. This would be consistent with a history of ulcerative colitis. There is a large colonic mass identified within the ascending colon. This causes focal luminal narrowing. There is felt to be central necrosis identified within this mass. Since the prior exam, the central area of necrosis is much better defined. In 3 planes, this measures at least 6.0 x 4.5 x 7.2 cm in size. Given the history of ulcerative colitis, concern is for colonic malignancy and surgical consultation is necessary. There has been prior appendectomy. No evidence for colonic or small bowel obstruction. No free air. There is a small amount of free pelvic fluid within the dependent pelvis. Lymph node assessment: A few scattered nodes are seen within the right ileocolonic mesentery. Largest node on image 85 measures 7 mm in short axis and is not enlarged by criteria. Pelvic structures: Appear unremarkable. Vessels: No significant atherosclerotic calcifications seen throughout a non aneurysmal abdominal aorta and branches. Musculoskeletal / Body wall: No acute or aggressive osseous abnormality. IMPRESSION: 1. CT findings consistent with recurrent colitis involving the ascending colon, transverse colon and the splenic flexure of the colon. No evidence of free air or abscess. 2. CT findings consistent with a large mass involving the ascending colon with central necrosis. See measurements above. A few scattered nodes are seen in the surrounding mesenteryy. 3. Small volume of free pelvic fluid. The study was read by the radiologist. I viewed the images myself on the PACS system. Results: Ultrasound of the right lower extremity venogram was obtained. The results of the study are US VENOUS LOWER EXT RT HISTORY: Calf pain since Tuesday COMPARISON: None. FINDINGS: Duplex sonographic images of the segmental compressibility and evaluation of re spiratory phasicity reveals no evidence of DVT. No mass or fluid collection. IMPRESSION: Unremarkable right lower extremity DVT ultrasound The study was read by the radiologist. I viewed the images myself on the PACS system. Results: MRI of the right lower extremity was obtained. The results of the study are MRI right tibia and fibula INDICATION: Right lower leg pain. Recent fall off horse. COMPARISON: None available. TECHNIQUE: Sagittal STIR and proton density fat saturated, coronal STIR, axial T1-weighted, T2-weighted fat-saturated images were obtained through the right tibia and fibula. FINDINGS: The marrow pattern of the included portions of the tibia and fibula is normal. There is no evidence of fracture or stress reaction. No bone contusion. Multifocal muscle abnormalities involve the lower leg. Specifically, abnormal muscle edema involves the posterior compartment musculature. This is most severe involving the medial and the lateral soleal musculature. This is most pronounced along the myotendinous junctions both proximally and distally. Less pronounced involvement of the lateral gastrocnemius and the medial gastrocnemius musculature. No intramuscular hematoma or fluid collection is seen. Focal tearing is suggested of the lateral soleus myotendinous junction consistent with a grade 2 myotendinous strain. The medial soleus and the gastrocnemius strains are felt to be low-grade. The anterior compartment musculature is normal. There is muscle edema seen within the lateral compartment within the proximal aspect of the lower leg. This involves the peroneal musculature. IMPRESSION: 1. Multifocal muscle strains involving the right lower leg. In the posterior compartment musculature, there is a grade 2 lateral soleus myotendinous strain without hematoma or fluid collection. Low-grade myotendinous strains involve the medial soleus as well as the gastrocnemius musculature. 2. Low-grade myotendinous strains proximally involving the peroneal musculature within the upper portion of the lower leg. 3. No evidence of fracture or bone contusion of the tibia or fibula. The study was read by the radiologist. I viewed the images myself on the PACS system. (EVELIO NOLASCO DO) ED Course/Re-evaluation ED Course Patient was admitted to an examination room. H&P was done. The differential diagnosis was considered. On clinical examination. Patient complaining of severe left calf pain. She has pain with movement. She had an ultrasound and a CT scan of her abdomen and pelvis yesterday at urgent care. The CT scan shows a large necrotic mass in the colon worrisome for malignancy. Patient's ultrasound of her right lower extremity was unremarkable for DVT. Patient has her own hydrocodone take for pain which has not been controlling the pain. She was unable to sleep tonight and came in to the emergency department for further evaluation. She has intact neurovascular function in her right foot. There is some swelling in the Achilles tendon area and the posterior calf is extremely tender on palpation. An MRI will be performed. There is a question of concern for compartment syndrome. The muscles are quite tender, but not tense. Care was turned over to Dr. Rodrigez shift change with MRI pending. Decision to Disposition Date: Jun 28, 2018 Decision to Disposition Time: 03:38 (EVELIO NOLASCO DO) ED Course ED course 23-year-old female signed out to me this morning with a complaint of leg pain had a recent CT scan confirming a abdominal mass in her ascending colon Pain was concerning a very tender had a Puri do a Malott exam for compartment syndrome showed a pressure of only [address] angiogram of the leg which is concerning for fluid retention had orthopedic and general surgery evaluated. The patient said that they feel she is safe to go home gave her pain medicine here and wrote within the department she will be discharged today follow-up with her GI specialist. MRI also showed some mild soft tissue damage. Decision to Disposition Date: Jun 28, 2018 Decision to Disposition Time: 14:02 (MIKAYLA LEONARD MD) Depart Departure Latest Vital Signs Vital Signs Date Time Temp Pulse Resp B/P (MAP) Pulse Ox O2 Delivery O2 Flow Rate FiO2 06/28/18 09:20 102 06/28/18 09:00 100 06/28/18 08:36 2.0 06/28/18 06:30 138/71 (93) 06/28/18 03:14 98.8 18 Room Air (MIKAYLA LEONARD MD) Impression: Primary Impression: Pain in right lower leg Additional Impression: Ulcerative colitis Condition: Improved Disposition: HOME OR SELF-CARE Patient Instructions: Leg Pain (ED) Problem Qualifiers Additional Impression: Ulcerative colitis Ulcerative colitis location: unspecified ulcerative colitis location Digestive disease complication type: unspecified complication Qualified Codes: K51.919 - Ulcerative colitis, unspecified with unspecified complications EVELIO NOLASCO DO Jun 28, 2018 03:14 MIKAYLA LEONARD MD Jun 28, 2018 14:03
[2018-06-28] MEDS ORDERED: PROMETHAZINE 25 MG/ML 1 ML AMP IM ONE (03:35)
[2018-06-28] MEDS ORDERED: HYDROMORPHONE HCL 1 MG/ML SYRINGE IM ONE (03:35)
[2018-06-28] MEDS ORDERED: PROMETHAZINE 25 MG/ML 1 ML AMP ONE (03:45)
[2018-06-28] MEDS ORDERED: HYDROMORPHONE HCL 1 MG/ML SYRINGE ONE ×2 (03:46→03:54)
[2018-06-28] MEDS ORDERED: HYDROmorphone HCL 2 MG TAB PO ONE (05:55)
[2018-06-28 06:30] VITALS: BP 138/71
--- NOTE | 2018-06-28 06:56 | RADIOLOGY IMAGING REPORT ---
[place] [facility] [place] Kaitlynn Fabian : 1995 MR: [id number] V: [id number] EXAM DATE: [id number] ORDERING PHYSICIAN: EVELIO NOLASCO TECHNOLOGIST: Location: [facility] Patient: Kaitlynn Fabian : 1995 Visit/Account:[id number] Date of Sevice: 06/28/2018 INDICATION: Pre-MRI evaluation. EXAM DATE: 06/28/2018 6:37 AM COMPARISON: None. FINDINGS: Single image of the orbits. Mineralization is normal. No alignment abnormality or fracture. No radio paque foreign body associated with the orbits. Soft tissues are unremarkable. IMPRESSION: No radiopaque foreign body in the orbits. Report Dictated By: Carlo Patel MD at 06/28/2018 6:50 AM Report E-Signed By: Carlo Patel MD at 06/28/2018 6:52 AM WSN:[id number]
[2018-06-28] MEDS ORDERED: fentaNYL CITR 100 MCG/2 ML AMP IVP ONE ×4 (07:00→12:15)
[2018-06-28 07:17] LABS: PLATELET COUNT, AUTOMATED 385 K/uL (150-450)
[2018-06-28 07:27] LABS: INR 1.04
--- NOTE | 2018-06-28 09:18 | RADIOLOGY IMAGING REPORT ---
FACILITY: [facility] PATIENT NAME: Kaitlynn Fabian : 1995 MR: [id number] V: [id number] EXAM DATE: ORDERING PHYSICIAN: EVELIO NOLASCO TECHNOLOGIST: Location: [facility] - [place] Patient: Kaitlynn Fabian : 1995 Visit/Account:[id number] Date of Sevice: 06/28/2018 MRI right tibia and fibula INDICATION: Right lower leg pain. Recent fall off horse. COMPARISON: None available. TECHNIQUE: Sagittal STIR and proton density fat saturated, coronal STIR, axial T1-weighted, T2-weighted fat-satu rated images were obtained through the right tibia and fibula. FINDINGS: The marrow pattern of the included portions of the tibia and fibula is normal. There is no evidence o f fracture or stress reaction. No bone contusion. Multifocal muscle abnormalities involve the lower leg. Specifically, abnormal muscle edema involves t he posterior compartment musculature. This is most severe involving the medial and the lateral soleal musculature. This is most pronounced along the myotendinous junctions both proximally and distally. Less pronounced involvement of the lateral gastrocnemius and the medial gastrocnemius musculature. No intramuscular hematoma or fluid collection is seen. Focal tearing is suggested of the lateral soleus myotendinous junction consistent with a grade 2 myotendinous strain. The medial soleus and the gastr ocnemius strains are felt to be low-grade. The anterior compartment musculature is normal. There is m uscle edema seen within the lateral compartment within the proximal aspect of the lower leg. This inv olves the peroneal musculature. IMPRESSION: 1. Multifocal muscle strains involving the right lower leg. In the posterior compartment musculature, there is a grade 2 lateral soleus myotendinous strain without hematoma or fluid collection. Low-grad e myotendinous strains involve the medial soleus as well as the gastrocnemius musculature. 2. Low-grade myotendinous strains proximally involving the peroneal musculature within the upper port ion of the lower leg. 3. No evidence of fracture or bone contusion of the tibia or fibula. Report Dictated By: Miles Bravo at 06/28/2018 9:02 AM Report E-Signed By: Miles Bravo at 06/28/2018 9:14 AM WSN:[id number]
[2018-06-28] MEDS ORDERED: IOPAMIDOL 76% 150 ML INFUS BTL 150 ML ONE (09:47)
[2018-06-28] MEDS ORDERED: NS 0.9% 25 ML BAG 25 ML ONE ×2 (09:48→09:52)
--- NOTE | 2018-06-28 11:45 | RADIOLOGY IMAGING REPORT ---
[place] [facility] [place] Kaitlynn Fabian : 1995 MR: [id number] V: [id number] EXAM DATE: ORDERING PHYSICIAN: MIKAYLA LEONARD TECHNOLOGIST: Location: [facility] [place] Patient: Kaitlynn Fabian : 1995 Visit/Account:[id number] Date of Sevice: 06/28/2018 CT CTA EXTREMITY LOW W & W/O CON HISTORY: Right leg pain. ADDITIONAL HISTORY: None. TECHNIQUE: CTA bilateral lower extremity with intravenous contrast. Coverage is from the popliteal artery into the foot. 3D coronal slab MIPs and 2D reconstructions in the coronal and sagittal planes were also created. One of the following dose optimization techniques was utilized in the performance of this exam: automated exposure control; adjustment of the mA and/or kv according to patient size; or use of iterative reconstruction technique. Specific details can be referenced in the facility's [facility] CT exam operational policy. CONTRAST: 125 mL of Isovue-370 COMPARISON: None. FINDINGS: Right lower extremity arterial system Popliteal: Normal PT/Peroneal trunk: Normal AT: Patent across the ankle into the foot forming the dorsalis pedis PT: Patent across the ankle into the foot forming the plantar arch Peroneal: Patent to the distal leg Left lower extremity arterial system Popliteal: Normal PT/Peroneal trunk: Normal AT: Patent to at least the lower leg. Poor opacification of the dorsalis pedis arch PT: Patent to at least the lower leg. Poor opacification of the plantar arch. Peroneal: Patent to the distal leg Bones/soft tissues: Diffuse edema within multiple muscle groups of the right lower leg especially the gastrocnemius-soleus complex. Other findings: None significant IMPRESSION: 1. Patent right lower extremity arterial system calf vessels with three-vessel runoff Report Dictated By: Pancho Morel MD at 06/28/2018 11:33 AM Report E-Signed By: Pancho Morel MD at 06/28/2018 11:41 AM WSN:[id number]
--- NOTE | 2018-06-28 20:00 | General Surgery Consultation ---
History of Present Illness Requesting Physician Dr. Walker, Orthopedic surgery and Dr. Flower, ER physician Reason for Consult Right lower extremity pain Chief Complaint Right lower extremity pain History of Present Illness Dr. Walker with orthopedic surgery was consult on this patient but he is in the middle of a spine surgery and has asked me if I can come down and evaluate this patient on his behalf. She is a 23-year-old female who presents to the emergency room with right lower extremity pain. She fell from a horse 5 days ago and landed on her back. She reports that the horse went right and she fell off the left side of the horse. She does not remember twisting her leg or striking her leg anywhere. No loss of consciousness. She seemed to recover without problems and had generalized soreness for a day or 2 but 2 days ago started having increased right lower leg pain, especially in the calf. This worsened yesterday and then again today bringing her into the hospital. She has been in the emergency room for approximately 10 hours at the time I am seeing her. She has apparently been evaluated by Dr. Rocha who is on-call for general surgery and he evaluated her abdomen due to ulcerative colitis with a mass in her ascending colon on CT that was completed yesterday. She is in fact leaving for [place] today to visit her GI specialist regarding her ulcerative colitis and this ascending colon mass. He apparently had evaluated her lower extremity and felt that it was soft although tender but well perfused including in her foot. Dr. Zaman, another emergency room physician who was educating some medical students also evaluated this patient and performed a compartment pressure with the [employer] measuring system and found her posterior compartment pressure to be 12 mmHg. She has got an MRI of her lower extremity which reveals muscular and tendinous inflammation but no fluid collections. She also has undergone a CTA of her lower extremities which reveals good vascular inflow to her foot with a widely patent popliteal artery, and her below knee arteries are widely patent below the trifurcation as are the arteries in her right foot. Dr. Walker was consult that is the on-call orthopedic surgeon to evaluate her for potential compartment syndrome but he has asked me to evaluate her in his place since he is tied up in surgery. 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 05/24/18 Diphenoxylate Hcl/Atropine (DIPHENOXYLATE-ATROPINE TABLET) 1 Each Tablet 05/24/18 Metronidazole (METRONIDAZOLE) 500 Mg Tablet 05/24/18 Ferrous Sulfate (FERROUS SULFATE) 325 Mg Tablet 05/24/18 Prednisone (PREDNISONE) 20 Mg Tablet 05/24/18 Allergies: Coded Allergies: No Known Drug Allergies (Unverified , 05/24/18) Review of Systems All Systems Reviewed/Normal: Yes, Except as Noted Musculoskeletal: Pain, Impaired Mobility Exam Vital Signs Vital Signs Date Time Temp Pulse Resp B/P (MAP) Pulse Ox O2 Delivery O2 Flow Rate FiO2 06/28/18 14:07 126 100 06/28/18 08:36 2.0 06/28/18 06:30 138/71 (93) 06/28/18 03:14 98.8 18 Room Air General Appearance: Alert, Awake, No Acute Distress, Afebrile Extremities: Warm, Perfused, Other (her right lower leg from the knee to her toes is examined and is symmetric with her left lower legin size and color and is soft along its entirety. She has easily palpable dorsalis pedis and posterior tibial pulses in her right foot. Her anterior, lateral, and posterior compartments are all soft although the posterior portion of her leg is very tender to palpation. There is no wound evident on her entire right lower extremity. There is no skin discoloration, erythema, or obvious edema. There is no deformity.) Medical Decision Making Data Points Result Diagram: 06/28/1870406/28/18704 Assessment and Plan Problems: (1) Unspecified injury of other muscle(s) and tendon(s) of posterior muscle group at lower leg level, right leg, initial encounter Status: Acute Assessment & Plan: Other than her significant pain, the examination of her right lower leg is completely unremarkable. I have reviewed her MRI and CT angio and her foot is well-perfused with no evidence of vascular compromise. She does have some edema in the posterior muscle groups as well as tendinous inflammation. There are no fluid collections and no gas present in the compart ments of her lower leg. This in conjunction with a short compartment pressure of 12 mmHg does not support the presence of compartment syndrome. I have discussed this with the patient, her mother, and the emergency room physician. After this discussion, they're plan would be to continue to [place] to be evaluated by the GI specialist regarding her ulcerative colitis and the mass lesion in her asce nding colon. They should of course monitor her right lower leg. I suspect her symptoms are due to muscle and tendinous injury. Other considerations that could cause pain out of proportion to physical exam would be necrotizing soft tissue infection but there is no evidence of skin abnormalities or wounds that would act as a entry point for the infection. Compartment syndrome can also cause pain out of proportion but there is no evidence of this on examination today or based on compartment pressure measurement. If they start to see signs of redness, purplish discoloration, increasing neurologic symptoms, swelling, increasing pain and they should seek immediate medical attention at the nearest emergency room for urgent reevaluation of her right lower leg. Condition Stable Time Spent: < 30 min Venous Thromboembolism VTE Risk Physician Assess for VTE Risk: Yes Patient's VTE Risk: Low VTE Diagnostic Test 2 Days Prior to Admit: No Antithrombotics Is Pt On Any Antithrombotics?: No DEBBIE OROZCO MD Jun 28, 2018 20:00
== END 2018-06-28 14:25 ==
LOC: ER 03:54
DX: M79.604 Pain in right leg (principal); K51.919 Ulcerative colitis, unspecified with unspecified complications
CPT/HCPCS: 36415; 70030; 81001; 83605; 85025; 85610; 85730; 86140; 87040; 96374; 96375; 99284; J1170; J2550; J3010; Q9967; 82040; 82247; 82310; 82374; 82435; 82565; 82947; 84075; 84132; 84155; 84295; 84450; 84460; 84520